=== PATIENT | female | born 1960 | race Caucasian/White ===

== ENCOUNTER → 2016-06-29 | Outpatient (CLI) | payer OTHER, BC ==
[2016-06-29 17:27] LABS: BASO % 0.5 % (0.0-1.0); EOS # 0.2 K/mm3 (0.0-0.50); EOS % 2.6 % (0.0-3.0); LYMPH # 2.6 K/mm3 (1.5-4.5); LYMPH % 28.1 % (24.0-44.0); MEAN CORPUSCULAR HEMOGLOBIN 28.9 pg (27.0-33.0); MEAN CORPUSCULAR VOLUME 85.1 fl (80.0-96.0); MONO # 0.4 K/mm3 (0.0-0.8); MONO % 4.1 % (0.0-5.0); NEUTROPHILS # 5.7 K/mm3 (1.8-7.7); NEUTROPHILS % 63.4 % (36.0-66.0); WHITE BLOOD COUNT 9.1 K/mm3 (4.0-10.0)
[2016-06-29 17:43] LABS: ALBUMIN 3.6 GM/DL (3.2-5.2); ALBUMIN/GLOBULIN RATIO 0.97 (1.00-1.93); BILIRUBIN,TOTAL 0.4 MG/DL (0.2-1.0); CREATININE FOR GFR 1.05 MG/DL (0.55-1.02); GLOMERULAR FILTRATION RATE 58.1 (>51); PHOSPHORUS LEVEL 3.6 MG/DL (2.5-4.9); POTASSIUM SERUM 3.1 MEQ/L (3.5-5.1); TOTAL PROTEIN 7.3 GM/DL (6.4-8.2); URIC ACID 8.2 MG/DL (2.6-6.0)
== END ==
LOC: M WUC 13:31
PROVIDERS: ATTEND Physician Assistant
DX: E78.4 Other hyperlipidemia (principal); R53.83 Other fatigue; E11.9 Type 2 diabetes mellitus without complications

== ENCOUNTER 2017-07-15 11:21 | Outpatient (RCR) | payer OTHER, BC | END 2017-08-12 | LOC: M PT 11:21 | DX: Z51.89 Encounter for other specified aftercare (principal); M75.121 Complete rotator cuff tear or rupture of right shoulder, not specified as traumatic; M75.122 Complete rotator cuff tear or rupture of left shoulder, not specified as traumatic | CPT/HCPCS: 97010 ==

== ENCOUNTER → 2017-09-14 | Outpatient (CLI) | payer OTHER, BC ==
[2017-09-14 13:14] LABS: BASO % 0.9 % (0.0-1.0); EOS # 0.2 10^3/uL (0.0-0.50); EOS % 3.6 % (0.0-3.0); HEMATOCRIT 42.7 % (36.0-47.0); HEMOGLOBIN 14.5 g/dl (12.0-15.5); IMMATURE GRANULOCYTE % 0.2 % (0-3.0); LYMPH # 1.3 10^3/uL (1.5-4.5); LYMPH % 29.1 % (24.0-44.0); MEAN CORPUSCULAR HEMOGLOBIN 30.1 pg (27.0-33.0); MEAN CORPUSCULAR VOLUME 88.6 fl (80.0-96.0); MONO # 0.4 10^3/uL (0.0-0.8); MONO % 9.5 % (0.0-5.0); NEUTROPHILS # 2.5 10^3/uL (1.8-7.7); NEUTROPHILS % 56.7 % (36.0-66.0); PLATELET COUNT, AUTOMATED 210 10^3/uL (150-450); RED BLOOD COUNT 4.82 10^6/uL (4.00-5.40); RED CELL DISTRIBUTION WIDTH 13.4 % (11.5-14.5); WHITE BLOOD COUNT 4.4 10^3/uL (4.0-10.0)
== END ==
LOC: M WUC 10:41
DX: Z79.899 Other long term (current) drug therapy (principal); M06.09 Rheumatoid arthritis without rheumatoid factor, multiple sites
CPT/HCPCS: 85027

== ENCOUNTER → 2017-11-29 | Outpatient (CLI) | payer OTHER, BC ==
[2017-11-29 09:42] LABS: BASO # 0.1 10^3/uL (0.0-0.2); EOS # 0.2 10^3/uL (0.0-0.50); EOS % 4.2 % (0.0-3.0); HEMATOCRIT 39.6 % (36.0-47.0); HEMOGLOBIN 13.9 g/dl (12.0-15.5); IMMATURE GRANULOCYTE % 0.4 % (0-3.0); LYMPH # 1.2 10^3/uL (1.5-4.5); LYMPH % 24.9 % (24.0-44.0); MEAN CORPUSCULAR HGB CONC 35.1 g/dl (32.0-36.5); MEAN CORPUSCULAR VOLUME 91.2 fl (80.0-96.0); MONO # 0.5 10^3/uL (0.0-0.8); MONO % 9.4 % (0.0-5.0); NEUTROPHILS % 60.1 % (36.0-66.0); PLATELET COUNT, AUTOMATED 173 10^3/uL (150-450); RED BLOOD COUNT 4.34 10^6/uL (4.00-5.40); RED CELL DISTRIBUTION WIDTH 13.1 % (11.5-14.5)
[2017-11-29 10:05] LABS: ESTIMATED AVERAGE GLUCOSE 123 MG/DL (60-110); HEMOGLOBIN A1c 5.9 %
[2017-11-29 10:10] LABS: FERRITIN 32 NG/ML (8-252); IRON (FE) 169 UG/DL (50-170); PERCENT SATURATION 51.7 % (13.2-45.0); TOTAL IRON BINDING CAPACITY 327 UG/DL (250-450)
[2017-11-29 10:10] LABS: ALBUMIN 3.9 GM/DL (3.2-5.2)
== END ==
LOC: M WUC 08:15
DX: Z01.818 Encounter for other preprocedural examination (principal); E11.9 Type 2 diabetes mellitus without complications; D63.8 Anemia in other chronic diseases classified elsewhere; M17.11 Unilateral primary osteoarthritis, right knee; M25.569 Pain in unspecified knee
CPT/HCPCS: 82040

== ENCOUNTER 2018-01-07 08:19 | Outpatient (RCR) | payer OTHER, BC | END 2018-01-12 | LOC: M PT 08:19 | DX: M25.561 Pain in right knee (principal); M17.11 Unilateral primary osteoarthritis, right knee | CPT/HCPCS: 97161 ==

== ENCOUNTER 2018-03-05 09:16 | Outpatient (RCR) | payer OTHER, BC | END 2018-03-14 | LOC: M PT 09:16 | DX: Z47.1 Aftercare following joint replacement surgery (principal); Z96.651 Presence of right artificial knee joint ==

== ENCOUNTER 2018-04-10 11:00 | Outpatient (RCR) | payer OTHER, BC | END 2018-04-14 | LOC: M PT 11:00 | PROVIDERS: ATTEND Orthopaedic Surgery | DX: Z47.89 Encounter for other orthopedic aftercare (principal); Z96.651 Presence of right artificial knee joint; M25.561 Pain in right knee ==

== ENCOUNTER → 2018-05-15 | Outpatient (RCR) | payer OTHER, BC | LOC: M PT 04-16 11:34 | PROVIDERS: ATTEND Orthopaedic Surgery | DX: Z47.1 Aftercare following joint replacement surgery (principal); Z96.651 Presence of right artificial knee joint ==

== ENCOUNTER 2018-05-26 09:00 | Outpatient (RCR) | payer OTHER, BC | END 2018-06-12 | LOC: M PT 09:00 | PROVIDERS: ATTEND Orthopaedic Surgery | DX: Z47.1 Aftercare following joint replacement surgery (principal); Z96.651 Presence of right artificial knee joint; Z98.890 Other specified postprocedural states; M25.661 Stiffness of right knee, not elsewhere classified ==

== ENCOUNTER → 2019-06-23 | Outpatient (REF) | payer OTHER, BC | LOC: M LAB 21:19 | PROVIDERS: ATTEND Physician Assistant Medical | DX: J02.9 Acute pharyngitis, unspecified (principal) ==